=== PATIENT | female | born 1955 | race Caucasian/White ===

== ENCOUNTER → 2018-01-28 13:01 | Outpatient (CLI) | payer SELFPAY ==
--- NOTE | 2018-01-28 13:06 | BI_ITS ---
MAMMOGRAPHY - BILATERAL SCREENING REASON FOR EXAM: Female, 62 years old. Routine annual screening examination. PERTINENT HISTORY: Non-contributory. TECHNIQUE: Digital bilateral breast mendoza (3D mammographic acquisition) in the CC and MLO projections. 2-D mediolateral oblique (MLO) and craniocaudad (CC) views of both breasts were obtained. CAD: Full Field Digital Mammography with Computer Added Detection was performed. COMPARISON: Comparison is made with prior study dated November 25, 2016 and October 23, 2015. FINDINGS: Breast Composition: The breasts are heterogeneously dense, which may obscure small masses. There are no dominant masses or suspicious calcifications. Stable appearance of the bilateral secretory calcifications. Tissue clip marker once again is seen in the upper lateral aspect of the right breast. Stable 6 mm well-defined nodule in the lateral aspect of the right breast suggests a very small benign appearing lymph node. No other significant abnormalities are identified. There has been no significant change since the prior study. BI/SCREENING MAMM (CAD), BILAT IMPRESSION: Stable bilateral screening mammogram. Yearly follow-up mammogram recommended. (A) ASSESSMENT CATEGORY: BIRADS Category 2: Benign. A letter regarding these results will be sent to the patient by the facility within 30 days. Approximately 10% of breast cancers are not detected by mammography. A normal mammogram should not delay biopsy of a clinically suspicious abnormality. [id number] Electronically Signed: Justin Estrada MD at 14:33 EDT Tel [phone], Service support ,
== END ==
PROVIDERS: Family Provider Student in an Organized Health Care Education/Training Program; PCP Student in an Organized Health Care Education/Training Program; Visit Provider Obstetrics & Gynecology
DX: Z12.31 Encounter for screening mammogram for malignant neoplasm of breast (principal)
CPT/HCPCS: 77063; 77067

== ENCOUNTER 2018-04-14 13:59 | Emergency (ER) | payer OTHER, SELFPAY ==
[2018-04-14 14:00] VITALS: BP 141/73; PULSE 78; RESP 16; TEMP 36.8; O2SAT 100; BMI 34.5
--- NOTE | 2018-04-14 14:15 | VDLE_ITS ---
Reason For Study: RLE SWELLING RIGHT GSV is normal. CFV is compressible, spontaneous, phasic, competent and demonstrates normal augmentation. FV is compressible, spontaneous, phasic, competent and demonstrates normal augmentation. POP V is compressible, spontaneous, phasic, competent and demonstrates normal augmentation. T/P Trunk is compressible. PTV is compressible. RT PerV is compressible. Varicosities are compressible. Gastrocnemius V is dilated and non- compressible. SSV is compressible at prox and mid segments. Distal segment is dilated and non- compressible. Procedure Exam performed portable in ED. The exam was diagnostic. A preliminary report was called and/or faxed to ED. Interpretation Summary Acute deep venous thrombosis right gastrocnemius vein Superficial thrombophlebitis right small saphenous vein in the proximal and mid calf. Varicosities noted right calf. No evidence for proximal progression of disease. Patent and compressible right great saphenous vein. Ordering Physician: Myra Hendrix Referring Physician: LIYA ARAMBULA Performed By: Beryl Palm, DEJA, RVT
--- NOTE | 2018-04-14 15:58 | ED.VISSUMM ---
- ER Visit Summary Date of Service: 04/14/18 Chief Complaint: [Pain and swelling right leg] History of Present Illness: The patient is a 62 F [presents to the emergency department complaint of pain in the right calf that started about 9 days ago. Patient denies any trauma. Patient denies chest pain or shortness of breath. Patient has history of varicose veins but has never had a DVT. Patient was seen in urgent care and referred to the emergency department to have a venous Doppler performed. Patient not on any hormone replacement. Patient has not had recent travel or surgery. Patient is not a smoker.] Physical Examination: [HEENT-PERRLA, EOMI. Cranial nerves II through XII grossly intact. TMs clear. Mucous membranes moist. No adenopathy. Cardiovascular-regular rate and rhythm without murmur or ectopy Lungs-clear to auscultation, chest wall stable without crepitus or subcu emphysema Abdomen-normoactive bowel sounds, soft, nontender, no rebound or rigidity, no peritoneal signs. Extremities-intact ?4, normal range of motion, normal pulses, atraumatic]. Right leg-patient does have multiple varicosities noted to both lower extremities however over the right calf she does have some firm and tender varicosities noted with some faint erythema noted. Patient does have a positive Homans sign. Test Results: [Venous duplex of the right lower extremity was obtained and showed the gastrocnemius vein to be dilated and noncompressible also the superficial saphenous vein is compressible at proximal and mid segments however the distal segment is dilated and noncompressible.] Emergency Department Course and Treatment: [I discussed case with Dr. Victor Manuel Lopes who did not have a preference regarding anticoagulation versus close observation and follow-up ultrasound in 1 week. I discussed with patient anticoagulation versus serial ultrasound and patient would prefer serial ultrasound at this point versus anticoagulation.] Treatment Plan: [Patient to take a full dose aspirin daily. Patient use heat to the area. Patient advised to return if chest pain, shortness of breath, increasing pain or redness or swelling to the right lower extremity or condition should worsen in any way.] Disposition: [Discharged home in stable condition] Impression: [DVT right lower extremity below the knee] This note was generated with [employer] dictation software. It may contain incorrect words, spelling, and punctuation that were not noted in review of the chart prior to signing ED Disposition - Plan for ED Patient: Chief Complaint: Lower Extremity Injury Referrals: Victor Manuel Lopes DO [Primary Care Provider] -
--- NOTE | 2018-04-14 16:03 | ED.DEP ---
ED Disposition - Plan for ED Patient: Chief Complaint: Lower Extremity Injury Instructions: ED DVT, Discharge Instructions for Deep Vein Thrombosis Referrals: Victor Manuel Lopes DO [Primary Care Provider] - 1 Week Additional Instructions: you will need a repeat ultrasound in 1 week
[2018-04-14 16:15] VITALS: BP 120/74; PULSE 68; RESP 18; O2SAT 99
== END 2018-04-14 16:16 | disposition home or self-care (01) ==
LOC: ED 14:19
PROVIDERS: Emergency Provider Emergency Medicine; Family Provider Student in an Organized Health Care Education/Training Program; PCP Student in an Organized Health Care Education/Training Program
DX: I82.491 Acute embolism and thrombosis of other specified deep vein of right lower extremity (principal); E03.9 Hypothyroidism, unspecified; Z79.82 Long term (current) use of aspirin
CPT/HCPCS: 93971; 99282

== ENCOUNTER 2019-04-30 14:42 | Emergency (ER) | payer OTHER, SELFPAY ==
[2019-04-30 14:43] VITALS: BP 143/79; PULSE 95; RESP 20; TEMP 36.7; O2SAT 99; BMI 33.1
[2019-04-30 15:12] VITALS: BP 138/75; RESP 16
--- NOTE | 2019-04-30 15:15 | RAD_ITS ---
STUDY: X-RAY - RIGHT FOOT CLINICAL: Laceration at the first metatarsophalangeal area from lawnmower. TECHNIQUE: 3 view(s) of the foot. COMPARISON: None. FINDINGS: Normal talus, calcaneus, and tarsal bones. Normal visualized subtalar, talonavicular, calcaneocuboid, tarsal and tarsometatarsal articulations. There are small fracture fragments with a defect of the medial aspect of the first metatarsal head at the metatarsophalangeal joint of the great toe. Normal tibial and fibular sesamoid bones. Normal interphalangeal joint of the great toe. Normal phalanges of the great toe. Normal second through fifth metatarsophalangeal joints. Normal interphalangeal joints and phalanges of the lesser toes. There is a laceration at the medial aspect of the first metatarsophalangeal joint. RAD/Foot min 3 Views IMPRESSION: Laceration at the medial aspect of the first metatarsophalangeal joint with a defect of the medial aspect of the first metatarsal head. Electronically Signed: Bebeto Hopkins MD at 15:40 EDT Tel , Service support ,
[2019-04-30] MEDS: Diphth,Pertuss(Acell),Tet Vac 0.5 ML Vial IM (15:21)
--- NOTE | 2019-04-30 16:28 | ED.DCSUM_ITS ---
- ER Visit Summary Date of Service: 04/30/19 Chief Complaint: Right foot injury History of Present Illness: The patient is a 63 F who presents the emergency department with a right foot injury. Patient informs me that her foot got hit by a running lawnmower. Unknown last tetanus. Physical Examination: Afebrile vital signs are stable Gen: Well-nourished well-developed Head: Normocephalic atraumatic Eyes: Perrl EOMI ENT: TMs clear no rhinorrhea moist mucous membranes Neck: Supple no lymphadenopathy no JVD nontender CVS: Regular rate rhythm no murmurs normal S1-S2 Respiratory: No distress clear to auscultation bilaterally chest nontender Abdomen: Soft nontender nondistended normal bowel sounds no masses Back: Nontender Extremity: On the medial aspect of the right foot near the MTP joint or multiple lacerations that coalesce into one long laceration measuring a total multiple laceration length of approximately 10 cm in length. There is some small arterial bleeding. Patient is able to dorsiflex and plantar flex the great toe. Less than 3-second capillary refill of the digit. The great toe is warm. Sensation is intact. There is palpable bone but there is enough tissue covering all the bones that is not visible. Skin: Normal color no rash Neuro: alert orientated ?3 CN II-XII intact normal strength sensation Psych: Normal affect normal mood Test Results: X-rays reveal a defect in the first metatarsal at the level of the injury Emergency Department Course and Treatment: 1 L of sterile saline was used to irrigate the wound. Using lidocaine with epinephrine and the bleeding subsided with pressure. I reviewed the case with podiatry, Dr. Monge. Recommendations are irrigation and then Betadine wet-to-dry dressing. Antibiotics tetanus update and crutches. He will visit with the patient Friday morning at 0800 hours. Plan is to have the wound heal by secondary intention. Her biggest concern at this point is infection. She is neurovascularly intact. I will give her a dose of Ancef here. We will also be writing for Augmentin and Cipro and [place] at home. Patient and family were given supplies to get them to their first appointment. Wound care was discussed at length and written out for them. Impression: 1. Open right first metatarsal fracture 2. Tetanus update This note was generated with [employer] software. It may contain incorrect words, spelling, and punctuation that were not noted in review of the chart prior to signing ED Disposition - Plan for ED Patient: Disposition: Home or Assisted Living Instructions: FRACTURE, Foot Prescriptions: Amox/Clavulanate Tablet [Augmentin Tablet] 875 mg PO Q12H #20 tab Prescription Printed Ciprofloxacin [Cipro] 500 mg PO BID #20 tab Prescription Printed Hydrocodone Bitart/Apap 5-325 [[place] 5MG-325MG] 1 tab PO Q6H PRN PRN 3 Days #12 tab PRN Reason: Pain Prescription Printed Referrals: Deepak Monge DPM [STAFF PHYSICIAN] - (Go to the office on Friday at 0800 hours) Additional Instructions: Once a day take down the dressing. He will find that the gauze that is soaked with the brown Betadine is dry and probably adhered to the wound. Use a half a bottle of the sterile saline to loosen the dressing. Then replace the dressing with more Betadine soaked gauze wrap with the Kerlix and Mark wrap. Please fill your antibiotics. Pain medication as directed and needed Crutches to bear as minimal weight as possible Return if any worsening or concerns
[2019-04-30 16:54] VITALS: BP 116/59; PULSE 72; RESP 17; O2SAT 96
--- NOTE | 2019-04-30 16:55 | ED.RN ---
IV DC'ED, CATHETER INTACT, SMALL GAUZE DRESSING PLACED. DISCHARGE INSTRUCTIONS GIVEN TO AND REVIEWED WITH PATIENT, PATIENT DENIES QUESTIONS OR CONCERNS AND VOICES UNDERSTANDING OF DISCHARGE INSTRUCTIONS. PT TO PRIVATE VEHICLE VIA WHEELCHAIR.
== END 2019-04-30 16:55 | disposition home or self-care (01) ==
PROVIDERS: Emergency Provider Emergency Medicine; Family Provider Student in an Organized Health Care Education/Training Program; PCP Student in an Organized Health Care Education/Training Program
DX: S92.311B Displaced fracture of first metatarsal bone, right foot, initial encounter for open fracture (principal); W22.8XXA Striking against or struck by other objects, initial encounter; Y93.9 Activity, unspecified
CPT/HCPCS: 73630; 87070; 87186; 87205; 90471; 90715; 99283; A4216

== ENCOUNTER → 2019-05-03 10:08 | Outpatient (CLI) | payer SELFPAY ==
[2019-04-30 14:43] VITALS: BMI 33.1
--- NOTE | 2019-05-03 10:15 | VDLE_ITS ---
Reason For Study: RLE RIGHT LEFT GSV is normal. CFV is compressible, spontaneous, phasic, CFV is compressible, spontaneous, phasic, competent, and demonstrates normal competent and demonstrates normal augmentation. augmentation. FV is compressible, spontaneous, phasic, competent and demonstrates normal augmentation. POP V is compressible, spontaneous, phasic, competent and demonstrates normal augmentation. T/P Trunk is compressible. PTV is compressible. RT PerV is compressible. RT Gastrocnemius V. & SSV are compressible. Procedure Exam performed in department. The exam was diagnostic. A preliminary report was called and/or faxed to Victor Manuel Scherer. Interpretation Summary Deep veins of the right lower extremity are patent and compressible segmentally. There is no evidence of right lower extremity deep vein thrombosis. Valvular competence appears intact within the proximal deep venous system on the right . The right great saphenous vein appears patent and compressible segmentally. The right small saphenous vein is patent and compressible. The acute deep vein thrombosis and superficial thrombophlebitis in the right lower extremity, identified in a prior study on 04/14/2018, has resolved. Ordering Physician: Osiris Truong Performed By: Beryl Palm, DEJA, RVT
== END ==
PROVIDERS: Family Provider Student in an Organized Health Care Education/Training Program; PCP Student in an Organized Health Care Education/Training Program; Visit Provider Podiatrist
DX: I82.431 Acute embolism and thrombosis of right popliteal vein (principal); R60.0 Localized edema
CPT/HCPCS: 93971

== ENCOUNTER 2020-08-18 10:20 | Emergency (ER) | payer SELFPAY ==
[2020-08-18 10:21] VITALS: BP 127/92; PULSE 86; RESP 18; TEMP 36.4; O2SAT 98; BMI 33.0
--- NOTE | 2020-08-18 10:47 | VDLE_ITS ---
Reason For Study: Pain Procedure LEFT This is a venous duplex using B-mode, color GSV is normal. flow and spectral Doppler. CFV is compressible, spontaneous, phasic, Exam performed portable in ED. competent, and demonstrates normal A preliminary report was called and/or faxed augmentation. to [facility]. FV is compressible, spontaneous, phasic, competent and demonstrates normal augmentation. POP V is compressible, spontaneous, phasic, competent and demonstrates normal augmentation. T/P Trunk is compressible. PTV is compressible. LT PerV is compressible. Interpretation Summary There is no evidence of left lower extremity deep vein thrombosis. Left great saphenous vein appears patent and compressible segmentally. Ordering Physician: Martita Jim Referring Physician: Victor Manuel Lopes Performed By: Elin Carlson RVT and Student
--- NOTE | 2020-08-18 11:05 | ED.VISSUMM ---
- ER Visit Summary Date of Service: 08/18/20 Chief Complaint: Left knee pain History of Present Illness: The patient is a 64 F presenting with left knee pain. She states this has been going on for approximately 1 month. She states that she was working frequently and may have overdone it. She states yesterday she twisted her knee making this worse. She denies other complaints. Physical Examination: Vitals are stable. Patient is afebrile. Alert no acute distress. HEENT exam is unremarkable. Neck is supple. Lungs are clear and equal bilaterally. Heart is regular rate and rhythm. Extremities mild medial right knee tenderness with painful range of motion. She also has mild posterior knee tenderness. No erythema or warmth. Normal distal pulses. Skin is warm and dry. No focal neurologic deficit. Remainder of exam is unremarkable. Emergency Department Course and Treatment: Left lower extremity venous Doppler shows no evidence of DVT. Left knee x-ray shows Normal x-ray examination of the knee. Patient declined pain medication. She is resting comfortably. She will follow-up with her primary care physician. Advised return to the ED for worsening complaints. Disposition: Discharge home Impression: Left knee sprain This note was generated with [employer] dictation software. It may contain incorrect words, spelling, and punctuation that were not noted in review of the chart prior to signing ED Disposition - Plan for ED Patient: Instructions: ED Knee Sprain Referrals: Victor Manuel Lopes DO [Primary Care Provider] -
--- NOTE | 2020-08-18 12:30 | RAD_ITS ---
STUDY: X-RAY - LEFT KNEE REASON FOR EXAM: Female, 64 years old. PT WITH LEFT KNEE PAIN ONGOING FOR MULTIPLE MONTHS. YESTERDAY PT TWISTED WRONG WAY AND FELT POP IN SAME KNEE TECHNIQUE: 4 view(s) of the knee. COMPARISON: None. FINDINGS: Normal visualized distal femur. Normal visualized proximal tibia and fibula. Normal proximal tibiofibular articulation. Normal medial femorotibial compartment. Normal lateral femorotibial compartment. Normal patellofemoral articulation. The soft tissue structures are unremarkable. RAD/Knee 4 or More Views IMPRESSION: Normal x-ray examination of the knee. Electronically Signed: Justin Estrada, at 12:47 EST , Service support ,
--- NOTE | 2020-08-18 13:17 | ED.DEP ---
ED Disposition - Plan for ED Patient: Instructions: ED Knee Sprain Referrals: Victor Manuel Lopes DO [Primary Care Provider] -
[2020-08-18 13:40] VITALS: RESP 17
== END 2020-08-18 13:40 | disposition home or self-care (01) ==
LOC: ED 11:16
PROVIDERS: Emergency Provider Emergency Medicine; PCP Student in an Organized Health Care Education/Training Program
DX: S83.92XA Sprain of unspecified site of left knee, initial encounter (principal); X50.1XXA Overexertion from prolonged static or awkward postures, initial encounter
CPT/HCPCS: 73564; 93971; 99282

== ENCOUNTER 2021-02-03 15:13 | Emergency (ER) | payer OTHER, SELFPAY ==
[2021-02-03 15:14] VITALS: BP 126/67; PULSE 102; RESP 16; TEMP 36.3; O2SAT 100; BMI 33.8
[2021-02-03 16:34] LABS: Absolute Lymphocyte Count 0.19 X10^3/uL (0.83-4.51); Basophil# 0.03 X10^3/uL; Basophil% 0.3 % (0-1); Eosinophil# 0.02 X10^3/uL; Eosinophils% 0.2 % (0-5); Hematocrit 49.5 % (37-47); Hemoglobin 15.8 g/dL (12.0-15.0); Lymphocyte # 0.19 X10^3/ul (0.83-4.51); Lymphocyte % 1.8 % (19-41); Mean Corp Hgb Conc 31.9 g/dL (32-36); Mean Corpuscular Hgb 29.3 pg (27.0-32.0); Mean Corpuscular Volume 91.8 fL (81-99); Mean Platelet Vol. 10.1 fl (6.2-12.0); Monocyte# 0.27 X10^3/uL; Monocyte% 2.6 % (0-10); NRBC Flagged by Analyzer 0 % (0-5); Neutrophil # 10.02 X10^3/uL (2.7-7.7); Neutrophil % 94.7 % (47-70); POSITIVE DIFFERENTIAL YES; Platelet Count 219 K/mm3 (150-450); RBC Distribution Width CV 13.2 % (11.6-14.6); RBC Distribution Width SD 44.8 fl (35.1-43.9); Red Blood Count 5.39 M/mm3 (4.2-5.4); White Blood Count 10.6 K/mm3 (4.4-11.0)
--- NOTE | 2021-02-03 16:37 | EX.ED.DYSGE1 ---
HPI History of Present Illness Chief Complaint: Nausea/Vomiting/Diarrhea Informant: patient Narrative Narrative: Patient is a 65-year-old female with a past medical history of hypothyroidism who presents to the emergency department for nausea/vomiting and diarrhea. Her initial symptoms started a few hours prior to arrival. She states she has vomited and had diarrhea too numerous times to count. She believes that she had an undercooked hamburger yesterday but nobody else was sick. No known sick contacts otherwise. No recent travel or antibiotic use. She denies any significant abdominal pain. She does have some abdominal cramping. She denies any fevers but has had chills. No cough. No rashes. No headache or stiff neck. She does have a history of cholecystectomy as well as appendectomy. No blood or black tarry stools. She has not tried taking anything for this. No known aggravating or relieving factors. PFSH PFSH Home Medications levothyroxine 88 mcg PO DAILY 08/18/20 [History Last Taken Unknown] ondansetron HCl [Zofran] 4 mg PO Q8H PRN #10 tab 02/03/21 [Rx Last Taken Unknown] Allergy/AdvReac Type Severity Reaction Status Date / Time No Known Allergies Allergy Verified 02/03/21 15:14 Social History Smoking Status: Never smoker ROS ROS ED Constitutional Constitutional ED: Reports chills; Denies fever(s) Eyes Eyes: Denies change in vision ENT ENT ED: Denies epistaxis or rhinorrhea Cardiovascular Cardiovascular: Denies chest pain or palpitations Respiratory/Chest Respiratory/Chest: Denies cough, dyspnea or dyspnea on exertion Gastrointestinal Gastrointestinal: Reports change in bowel habits, diarrhea, nausea and vomiting; Denies abdominal pain, hematemesis, hematochezia or melena Genitourinary Genitourinary ED: Denies dysuria, hematuria or urinary frequency Musculoskeletal Musculoskeletal: Reports back pain; Denies neck pain Integumentary Denies rash Neurologic Neurologic: Denies dizziness, headache(s) or weakness EXAM Physical Exam Const Vital Signs: 02/03/21 15:14 02/03/21 18:37 Temperature 97.3 F L Temperature Source Temporal Pulse Rate 102 H 78 Respiratory Rate 16 16 Blood Pressure 126/67 H 138/86 H Blood Pressure Mean 86 Pulse Ox 100 98 Oxygen Delivery Method Room Air Positive well nourished and well developed General Appearance ED: well developed and NAD HEENT Reports normocephalic, head/scalp atraumatic and moist mucous membranes Eyes PERRL and EOMs intact bilaterally Neck no lymphadenopathy and supple General: Negative for tenderness Chest Wall inspection of chest normal Resp normal respiratory effort and clear to auscultation bilaterally Auscultation: Negative for rales, rhonchi or wheezes Cardio regular rate, regular rhythm and no murmurs Cardio Narrative: Borderline tachycardic GI normal to inspection, nondistended, normoactive bowel sounds and non-tender Palpation: soft; Negative for guarding or rebound tenderness present Back/Spine no CVA tenderness Extremity normal to inspection General Extremety ED: Negative for edema or tenderness General Extremity: Negative for edema Neuro oriented x3, CN's II-XII intact bilaterally and no sensory deficits noted Sensorium / Orientation: alert Motor Exam: strength 5/5 throughout Psych mental status grossly normal Skin no rashes or lesions noted MDM MDM MDM Narrative Medical decision making narrative: Patient presents to the emergency department for nausea/vomiting and diarrhea. She started earlier today. Upon arrival to the emergency department she is tachycardic but otherwise normal vital signs. She is afebrile. She denies any blood in the stool. No significant abdominal pain. She is having multiple bowel movements in the ED. Will check basic lab work and start IV fluids and treat with Zofran. Patient's lab work did not reveal any significant acute abnormality. Her alkaline phosphatase was mildly elevated. Her heart rate did return to normal rate with IV fluids. She is no longer having any nausea vomiting after treatment. Her diarrhea has slowed significantly. She does feel comfortable going home. Her symptoms do sound related to gastroenteritis given the fact she had a nausea/vomiting and diarrhea after potentially eating bad food yesterday. If she develops any fevers, abdominal pain, bloody stool she needs to return to the emergency department. She otherwise is to follow-up with her PCP. Did write a prescription for Zofran for symptomatic treatment at home. Lab Data Labs: Laboratory Results - last 24 hr 02/03/21 02/03/21 16:14 16:14 WBC 10.6 RBC 5.39 Hgb 15.8 H Hct 49.5 H MCV 91.8 MCH 29.3 MCHC 31.9 L RDW Std Deviation 44.8 H RDW Coeff of Frank 13.2 Plt Count 219 MPV 10.1 Immature Gran % (Auto) 0.400 Neut % (Auto) 94.7 H Lymph % (Auto) 1.8 L [place] % (Auto) 2.6 Eos % (Auto) 0.2 Baso % (Auto) 0.3 Absolute Neuts (auto) 10.0 H Absolute Lymphs (auto) 0.19 L Nucleated RBC % 0 Differential Comment SCANNED Sodium 140 Potassium 4.0 Chloride 108 H Carbon Dioxide 23.0 Anion Gap 9 BUN 24 H Creatinine 1.01 Estim Creat Clear Calc 41.35 Est GFR (MDRD) Af Amer 70 Est GFR (MDRD) Non-Af 58 L BUN/Creatinine Ratio 23.8 H Glucose 119 H Calcium 9.7 Total Bilirubin 0.40 Direct Bilirubin 0.11 AST 28 ALT 28 Alkaline Phosphatase 135 H Total Protein 8.5 H Albumin 4.6 Globulin 3.9 Discharge Plan Triage Chief Complaint: Nausea/Vomiting/Diarrhea ED Provider: Keenan Tijerina Dx/Rx/DC Orders Clinical Impression: Nausea & vomiting, Diarrhea Instructions: ED Food Poison Or Gastroenteritis Prescriptions: New ondansetron HCl [Zofran] 4 mg tablet 4 mg PO Q8H PRN (Reason: nausea and vomiting) Qty: 10 RF: 0 No Action levothyroxine 88 MCG tablet 88 mcg PO DAILY RF: 0 Primary Care Provider: Victor Manuel Lopes Referrals: Victor Manuel Lopes DO [Primary Care Provider] - 1-2 Days if not improving Disposition Disposition: Home, self care Discharge Date/Time: 02/03/21 18:39
[2021-02-03 16:38] LABS: Differential Indicated SCAN CRITERIA MET
[2021-02-03] MEDS: Ondansetron 4 MG/2 ML Vial IV (16:38)
[2021-02-03] MEDS: 0.9% Normal Saline 1,000 ML 999 ML IV (16:38)
[2021-02-03 16:44] LABS: AST(SGOT) 28 U/L (15-37); Alanine Aminotransfer ALT/SGPT 28 U/L (13-56); Albumin, Serum 4.6 g/dL (3.2-5.0); Alkaline Phosphatase 135 U/L (45-117); Anion Gap 9 (5-15); BUN 24 mg/dL (7-18); BUN/Creat Ratio 23.8 RATIO (10-20); Bilirubin, Direct 0.11 mg/dL (0.00-0.30); Calcium,Total 9.7 mg/dL (8.5-10.1); Chloride 108 mmol/L (98-107); Creatinine, Serum 1.01 mg/dL (0.55-1.02); EST Glomerular Filtration Rate 58 mL/min (>60); Est Glom Filt Rate - Afr Amer 70 mL/min (>60); Estimated Creatinine Clearance 41.35 ml/min; Globulin 3.9 g/dL (2.2-4.2); Glucose 119 mg/dL (74-106); Protein, Total 8.5 g/dL (6.4-8.2); Sodium Level 140 mmol/L (136-145)
[2021-02-03 16:57] LABS: Differential Comment SCANNED
[2021-02-03 18:37] VITALS: BP 138/86; PULSE 78; RESP 16; O2SAT 98
== END 2021-02-03 18:39 | disposition home or self-care (01) ==
PROVIDERS: Emergency Provider Emergency Medicine; PCP Student in an Organized Health Care Education/Training Program
DX: R11.2 Nausea with vomiting, unspecified (principal); R19.7 Diarrhea, unspecified; R10.9 Unspecified abdominal pain; R68.83 Chills (without fever)
CPT/HCPCS: 80048; 80076; 85025; 96361; 96374; 99283; J7030; A4216; J2405